=== PATIENT | male | born 1995 | race Asian ===

== ENCOUNTER 2017-07-29 14:06 | Emergency (ER) | payer MEDICAID ==
[~2017-07-29] VITALS: Ht 170.2 cm; Wt 54.5 kg
[2017-07-29] MEDS ORDERED: IBUPROFEN 800 MG TABLET PO ONE (16:45)
[2017-07-29 17:04] VITALS: BP 138/68
== END 2017-07-29 18:48 | disposition home or self-care (01) ==
LOC: EMS 14:09
DX: M25.561 Pain in right knee (principal)
CPT/HCPCS: 29505; 99284

== ENCOUNTER 2017-08-04 15:45 | Emergency (ER) | payer MEDICAID ==
[~2017-08-04] VITALS: Ht 170.2 cm; Wt 54.5 kg
[2017-08-04 16:04] VITALS: BP 127/76
== END 2017-08-04 17:13 | disposition home or self-care (01) ==
LOC: EMS 15:46
DX: M25.561 Pain in right knee (principal)
CPT/HCPCS: 99281